=== PATIENT | male | born 1960 | race Two or more races ===

== ENCOUNTER 2020-12-15 11:30 | Inpatient (IN) | payer OTHER ==
[~2020-12-15] VITALS: Ht 182.9 cm; Wt 92.1 kg
[2020-12-15] MEDS ORDERED: LOTREL 5-10 MG1 CAP PO (12:28)
== END 2020-12-24 17:31 | disposition home or self-care (01) | DRG 334 ==
LOC: O/R 12-22 05:40 → SURH 12-22 05:40
PROVIDERS: ADMIT Colon & Rectal Surgery; ATTEND Colon & Rectal Surgery
PROC: 0DBP4ZZ Excision of Rectum, Percutaneous Endoscopic Approach (ICD-10-PCS; principal; 2020-12-22 14:15)
DX: K57.32 Diverticulitis of large intestine without perforation or abscess without bleeding (principal); I10 Essential (primary) hypertension; R10.9 Unspecified abdominal pain